=== PATIENT | male | born 1955 | race Caucasian/White ===

== ENCOUNTER 2019-02-22 14:01 | Outpatient (CLI) | payer OTHER | END 2019-02-22 14:02 | disposition home or self-care (01) | LOC: RT 14:01 | PROVIDERS: ATTEND Internal Medicine Gastroenterology | DX: R00.2 Palpitations (principal) | CPT/HCPCS: 93005 ==

== ENCOUNTER 2019-02-25 12:56 | Day surgery (SDC) | payer OTHER ==
[2019-02-25] MEDS ORDERED: LACTATED RINGERS 1,000 ML IV ONE (13:31)
[2019-02-25] MEDS ORDERED: fentaNYL 250 MCG/5 ML VIAL IVP ONE (14:50)
[2019-02-25] MEDS ORDERED: MIDAZOLAM 2 MG/2 ML VIAL IVP ONE (14:50)
[2019-02-25 16:01] VITALS: BP 130/72
== END 2019-02-25 12:57 | disposition home or self-care (01) ==
LOC: SDS 12:56
PROVIDERS: ATTEND Internal Medicine Gastroenterology
PROC: 0DBN8ZZ Excision of Sigmoid Colon, Via Natural or Artificial Opening Endoscopic (ICD-10-PCS; principal; 2019-02-25 14:15)
DX: K62.5 Hemorrhage of anus and rectum (principal); R19.4 Change in bowel habit; K63.5 Polyp of colon; K64.8 Other hemorrhoids; K64.4 Residual hemorrhoidal skin tags; R00.2 Palpitations
CPT/HCPCS: 45380; J7120

== ENCOUNTER 2020-01-18 12:38 | Outpatient (CLI) | payer MEDICARE, OTHER | END 2020-01-18 12:39 | disposition critical access hospital (66) | LOC: EMS 12:38 | PROVIDERS: ATTEND Surgery | DX: R07.81 Pleurodynia (principal); Y93.55 Activity, bike riding; Y92.838 Other recreation area as the place of occurrence of the external cause; V18.0XXA Pedal cycle driver injured in noncollision transport accident in nontraffic accident, initial encounter | CPT/HCPCS: A0425; A0429 ==

== ENCOUNTER 2020-01-18 13:10 | Observation (INO) | payer MEDICARE, OTHER ==
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
[2020-01-18] MEDS ORDERED: MORPHINE 2 MG/ML CARPUJECT IVP STA (14:52)
[2020-01-18 15:08] LABS: BASOPHILS # (AUTO) 0.1 10^3/uL (0.0-0.1); BASOPHILS % (AUTO) 0.5 %; EOSINOPHILS % (AUTO) 0.1 %; HGB - HEMOGLOBIN 15.1 g/dL (14.0-18.0); LYMPHOCYTES # (AUTO) 0.6 10^3/uL (1.5-3.5); LYMPHOCYTES % (AUTO) 4.4 %; MEAN CORPUSCULAR HEMOGLOBIN 30.1 pg (27.0-31.0); MEAN CORPUSCULAR HGB CONC 33.7 g/dL (32.0-36.0); MEAN CORPUSCULAR VOLUME 89.2 fL (80.0-94.0); MEAN PLATELET VOLUME 9.1 fL (7.4-11.4); MONOCYTES # (AUTO) 0.9 10^3/uL (0.0-1.0); MONOCYTES % (AUTO) 6.8 %; NEUTROPHILS # (AUTO) 11.7 10^3/uL (1.5-6.6); NEUTROPHILS % (AUTO) 87.5 %; PLT - PLATELET COUNT 191 10^3/uL (130-450); RED BLOOD COUNT 5.02 10^6/uL (4.70-6.10); RED CELL DISTRIBUTION WIDTH 13.4 % (12.0-15.0); WHITE BLOOD COUNT 13.3 x10^3/uL (4.8-10.8)
[2020-01-18] MEDS ORDERED: IOVERSOL 320 100 ML VIAL IVP ONE ×2 (15:10→15:54)
[2020-01-18 15:15] LABS: MUDS CUTOFF CONCENTRATIONS CUTOFF CONC BELOW:
[2020-01-18 15:18] LABS: BILIRUBIN,URINE NEGATIVE (NEGATIVE); GLUCOSE, URINE (UA) NEGATIVE (NEGATIVE); KETONES,URINE (UA) NEGATIVE (NEGATIVE); LEUKOCYTE ESTERASE, URINE NEGATIVE (NEGATIVE); NITRITE,URINE NEGATIVE (NEGATIVE); OCCULT BLOOD,URINE NEGATIVE (NEGATIVE); PH,URINE 7.5 PH (5.0-7.5); PROTEIN,URINE NEGATIVE (NEGATIVE); UROBILINOGEN,URINE 0.2 (NORMAL) E.U./dL (NORMAL)
[2020-01-18 15:19] LABS: ALBUMIN 4.4 g/dL (3.2-5.5); ALBUMIN/GLOBULIN RATIO 1.8 (1.0-2.2); ALKALINE PHOSPHATASE 132 IU/L (42-121); ALT ALANINE AMINOTRANSFERASE 80 IU/L (10-60); AST ASPARTATE AMINOTRANSFERASE 88 IU/L (10-42); BILIRUBIN,TOTAL 0.7 mg/dL (0.2-1.0); BUN - BLOOD UREA NITROGEN 14 mg/dL (6-20); CALCIUM 9.2 mg/dL (8.5-10.3); CARBON DIOXIDE - CO2 29 mmol/L (21-32); CHLORIDE 105 mmol/L (101-111); CREATININE 0.9 mg/dL (0.6-1.2); GLUCOSE 149 mg/dL (70-100); LIPASE 24 U/L (22-51); PHENYTOIN (DILANTIN) 24.3 ug/mL; SODIUM 141 mmol/L (135-145); TOTAL PROTEIN 6.9 g/dL (6.7-8.2)
[2020-01-18 15:20] LABS: CLARITY,URINE CLEAR (CLEAR)
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
[2020-01-18 15:29] LABS: AMPHETAMINE SCREEN,URINE NEGATIVE (NEGATIVE); BENZODIAZEPINES SCREEN, URINE NEGATIVE (NEGATIVE); COCAINE SCREEN URINE NEGATIVE (NEGATIVE); METHADONE SCREEN, URINE NEGATIVE (NEGATIVE); METHAMPHETAMINES SCREEN, URINE NEGATIVE (NEGATIVE); OPIATE SCREEN, URINE NEGATIVE (NEGATIVE); OXYCODONE SCREEN, URINE NEGATIVE (NEGATIVE); PROPOXYPHENE SCREEN, URINE NEGATIVE (NEGATIVE); TRICYCLIC ANTIDEPRESSANT,URINE NEGATIVE (NEGATIVE)
--- NOTE | 2020-01-18 16:02 | CT Report ---
Reason: Head trauma, abnormal mental status Procedure Date: 01/18/2020 Accession Number: [id number] / [id number] Procedure: CT - HEAD WO CPT Code: Final Report FULL RESULT: EXAM: CT HEAD EXAM DATE: 01/18/2020 03:35 PM. CLINICAL HISTORY: Head trauma, abnormal mental status. COMPARISON: None. TECHNIQUE: Multiaxial CT images were obtained from the foramen magnum to the vertex. Reformats: Sagittal and coronal. IV contrast: None. In accordance with CT protocol optimization, one or more of the following dose reduction techniques were utilized for this exam: automated exposure control, adjustment of mA and/or KV based on patient size, or use of iterative reconstructive technique. FINDINGS: Parenchyma: No intraparenchymal hemorrhage. No evidence of mass, midline shift, or CT findings of acute infarction. Encephalomalacia right temporal lobe. Macias-white differentiation is distinct. Extraaxial Spaces: Normal for age. No subdural or epidural collections identified. Ventricles: Normal in size and position. Sinuses and Orbits: Imaged paranasal sinuses, orbits, and mastoids show no significant abnormality. Bones: Post right temporal craniotomy. Other: None. IMPRESSION: No acute intracranial abnormalities. Encephalomalacia right temporal lobe RADIA
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
[2020-01-18 16:39] LABS: INR 1.2 (0.8-1.2); PT - PROTHROMBIN TIME 13.2 secs (9.9-12.6)
[2020-01-18] MEDS ORDERED: HYDROmorphone 1 MG/ML SYRINGE IVP STA (16:41)
[2020-01-18 16:46] LABS: PARTIAL THROMBOPLASTIN TIME 23.9 secs (24.9-33.3)
[2020-01-18] MEDS ORDERED: SODIUM CHLORIDE FLUSH 0.9% 10 ML SYRINGE IVP PRN (17:59)
[2020-01-18] MEDS ORDERED: ONDANSETRON 4 MG/2 ML VIAL IVP PRN (17:59)
[2020-01-18] MEDS ORDERED: ONDANSETRON ODT 4 MG TABLET TL PRN (17:59)
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
[2020-01-18] MEDS: HYDROmorphone 0.5 MG/0.5 ML SYRINGE IVP PRN (18:41)
[2020-01-18] MEDS: SODIUM CHLORIDE FLUSH 0.9% 10 ML SYRINGE IVP SCH (18:42)
[2020-01-18] MEDS: ACETAMINOPHEN 325 MG TABLET PO PRN (20:09)
[2020-01-18] MEDS: oxyCODONE 5 MG TABLET PO PRN (20:10)
[2020-01-18] MEDS ORDERED: OXYBUTYNIN 5MG TABLET PO SCH (21:00)
[2020-01-18] MEDS ORDERED: NON FORMULARY MED PO SCH (21:00)
[2020-01-18] MEDS: lamoTRIgine 100 MG TABLET PO SCH (23:48)
[2020-01-18] MEDS: PHENYTOIN ER 100 MG CAPSULE PO SCH (23:48)
[2020-01-18] MEDS: PARoxetine 10 MG TABLET PO SCH (23:51)
[2020-01-19] MEDS: oxyCODONE 5 MG TABLET PO PRN ×4 (00:11→20:57)
[2020-01-19] MEDS: SODIUM CHLORIDE FLUSH 0.9% 10 ML SYRINGE IVP SCH ×3 (00:12→21:01)
[2020-01-19] MEDS: HYDROmorphone 0.5 MG/0.5 ML SYRINGE IVP PRN (01:53)
[2020-01-19] MEDS ORDERED: ZONISAMIDE 100MG CAPSULE PO SCH (07:16)
--- NOTE | 2020-01-19 08:20 | PHARMACY PROGRESS NOTE ---
- Best Possible Medication History Admit Date and Time: 01/18/20 1759 Processed by: Pharmacy Medication History completed: Yes Patient Interview: Pt unable to participate Secondary Source(s): Prescription bottles, Pharmacy records, Insurance records As the person ultimately responsible for medication therapy, providers are able to order a medication from an existing home medication list in [facility] via the "Reconcile Routine" prior to Confirmation of that medication by senior technical support analyst. Such practice is discouraged except when the physician, in their clinical judgment, deems that a medical need exists for a medication without regard to previous use.
[2020-01-19] MEDS ORDERED: lamoTRIgine 100 MG TABLET PO SCH (09:00)
[2020-01-19] MEDS: lamoTRIgine 100 MG TABLET PO SCH ×2 (09:47→20:58)
--- NOTE | 2020-01-19 10:59 | PROVIDER PROGRESS NOTE ---
Subjective - General Admit Date: 01/18/20 - Other Other Information/Narrative: Doing well, still quite sore when moving but karen diet, hct stable, no nausea. Has not yet been OOB and no BM in 2 days. Objective - Patient Data Reviewed Vital Signs: Yes Vital Signs: Vital Signs x48h Temp Pulse Pulse Resp BP Pulse Ox 01/19/20 08:19 36.9 C 104 H 14 100 01/19/20 05:00 36.9 C 60 16 130/68 97 Weight: Weight 01/17/20 01/18/20 01/19/20 23:59 23:59 23:59 Weight (kg) 87 kg Intake & Output: Intake and Output Totals x24h 01/17/20 01/18/20 01/19/20 23:59 23:59 23:59 Intake Total 750 1120 Output Total 350 950 Balance 400 170 - Lab Results Lab Results: 01/19/20 06:07 01/18/20 15:00 Other Lab Results: Lab Results x24hrs 01/19/20 01/18/20 01/18/20 Range/Units 06:07 20:25 15:10 WBC (4.8-10.8) x10^3/uL RBC (4.70-6.10) 10^6/uL Hgb (14.0-18.0) g/dL Hct 43.6 45.7 (42.0-52.0) % MCV (80.0-94.0) fL MCH (27.0-31.0) pg MCHC (32.0-36.0) g/dL RDW (12.0-15.0) % Plt Count (130-450) 10^3/uL MPV (7.4-11.4) fL Neut # (Auto) (1.5-6.6) 10^3/uL Lymph # (Auto) (1.5-3.5) 10^3/uL Donley # (Auto) (0.0-1.0) 10^3/uL Eos # (Auto) (0.0-0.7) 10^3/uL Baso # (Auto) (0.0-0.1) 10^3/uL Absolute Nucleated RBC x10^3/uL Nucleated RBC % /100WBC PT (9.9-12.6) secs INR (0.8-1.2) APTT (24.9-33.3) secs Sodium (135-145) mmol/L Potassium (3.5-5.0) mmol/L Chloride (101-111) mmol/L Carbon Dioxide (21-32) mmol/L Anion Gap (6-13) BUN (6-20) mg/dL Creatinine (0.6-1.2) mg/dL Estimated GFR (MDRD) (>89) Glucose (70-100) mg/dL Calcium (8.5-10.3) mg/dL Total Bilirubin (0.2-1.0) mg/dL AST (10-42) IU/L ALT (10-60) IU/L Alkaline Phosphatase (42-121) IU/L Total Protein (6.7-8.2) g/dL Albumin (3.2-5.5) g/dL Globulin (2.1-4.2) g/dL Albumin/Globulin Ratio (1.0-2.2) Lipase (22-51) U/L Urine Color YELLOW Urine Clarity CLEAR (CLEAR) Urine pH 7.5 (5.0-7.5) PH Ur Specific Langdon 1.010 (1.002-1.030) Urine Protein NEGATIVE (NEGATIVE) mg/dL Urine Glucose (UA) NEGATIVE (NEGATIVE) mg/dL Urine Ketones NEGATIVE (NEGATIVE) mg/dL Urine Occult Blood NEGATIVE (NEGATIVE) Urine Nitrite NEGATIVE (NEGATIVE) Urine Bilirubin NEGATIVE (NEGATIVE) Urine Urobilinogen 0.2 (NORMAL) (NORMAL) E.U./dL Ur Leukocyte Esterase NEGATIVE (NEGATIVE) Ur Microscopic Review NOT INDICATED Urine Culture Comments NOT INDICATED Urine Opiates Screen NEGATIVE (NEGATIVE) Ur Oxycodone Screen NEGATIVE (NEGATIVE) Urine Methadone Screen NEGATIVE (NEGATIVE) Ur Propoxyphene Screen NEGATIVE (NEGATIVE) Ur Barbiturates Screen POSITIVE H (NEGATIVE) Phenytoin ug/mL Ur Tricyclics Screen NEGATIVE (NEGATIVE) Ur Phencyclidine Scrn NEGATIVE (NEGATIVE) Ur Amphetamine Screen NEGATIVE (NEGATIVE) U Methamphetamines Scrn NEGATIVE (NEGATIVE) U Benzodiazepines Scrn NEGATIVE (NEGATIVE) Urine Cocaine Screen NEGATIVE (NEGATIVE) U Cannabinoids Screen NEGATIVE (NEGATIVE) Ethyl Alcohol mg/dL 01/18/20 01/18/20 01/18/20 Range/Units 15:00 15:00 15:00 WBC 13.3 H (4.8-10.8) x10^3/uL RBC 5.02 (4.70-6.10) 10^6/uL Hgb 15.1 (14.0-18.0) g/dL Hct 44.8 (42.0-52.0) % MCV 89.2 (80.0-94.0) fL MCH 30.1 (27.0-31.0) pg MCHC 33.7 (32.0-36.0) g/dL RDW 13.4 (12.0-15.0) % Plt Count 191 (130-450) 10^3/uL MPV 9.1 (7.4-11.4) fL Neut # (Auto) 11.7 H (1.5-6.6) 10^3/uL Lymph # (Auto) 0.6 L (1.5-3.5) 10^3/uL Donley # (Auto) 0.9 (0.0-1.0) 10^3/uL Eos # (Auto) 0.0 (0.0-0.7) 10^3/uL Baso # (Auto) 0.1 (0.0-0.1) 10^3/uL Absolute Nucleated RBC 0.00 x10^3/uL Nucleated RBC % 0.0 /100WBC PT 13.2 H (9.9-12.6) secs INR 1.2 (0.8-1.2) APTT 23.9 L (24.9-33.3) secs Sodium 141 (135-145) mmol/L Potassium 3.6 (3.5-5.0) mmol/L Chloride 105 (101-111) mmol/L Carbon Dioxide 29 (21-32) mmol/L Anion Gap 7.0 (6-13) BUN 14 (6-20) mg/dL Creatinine 0.9 (0.6-1.2) mg/dL Estimated GFR (MDRD) 85 L (>89) Glucose 149 H (70-100) mg/dL Calcium 9.2 (8.5-10.3) mg/dL Total Bilirubin 0.7 (0.2-1.0) mg/dL AST 88 H (10-42) IU/L ALT 80 H (10-60) IU/L Alkaline Phosphatase 132 H (42-121) IU/L Total Protein 6.9 (6.7-8.2) g/dL Albumin 4.4 (3.2-5.5) g/dL Globulin 2.5 (2.1-4.2) g/dL Albumin/Globulin Ratio 1.8 (1.0-2.2) Lipase 24 (22-51) U/L Urine Color Urine Clarity (CLEAR) Urine pH (5.0-7.5) PH Ur Specific Langdon (1.002-1.030) Urine Protein (NEGATIVE) mg/dL Urine Glucose (UA) (NEGATIVE) mg/dL Urine Ketones (NEGATIVE) mg/dL Urine Occult Blood (NEGATIVE) Urine Nitrite (NEGATIVE) Urine Bilirubin (NEGATIVE) Urine Urobilinogen (NORMAL) E.U./dL Ur Leukocyte Esterase (NEGATIVE) Ur Microscopic Review Urine Culture Comments Urine Opiates Screen (NEGATIVE) Ur Oxycodone Screen (NEGATIVE) Urine Methadone Screen (NEGATIVE) Ur Propoxyphene Screen (NEGATIVE) Ur Barbiturates Screen (NEGATIVE) Phenytoin 24.3 ug/mL Ur Tricyclics Screen (NEGATIVE) Ur Phencyclidine Scrn (NEGATIVE) Ur Amphetamine Screen (NEGATIVE) U Methamphetamines Scrn (NEGATIVE) U Benzodiazepines Scrn (NEGATIVE) Urine Cocaine Screen (NEGATIVE) U Cannabinoids Screen (NEGATIVE) Ethyl Alcohol < 5.0 mg/dL - Current Medications Current Medications: Current Medications Generic Name Dose Route Start Last Admin Trade Name Freq PRN Reason Stop Dose Admin Acetaminophen 650 mg 01/18/20 17:59 01/18/20 20:09 Tylenol PO 650 mg Q4HR PRN Administration Pain 1 to 4 Hydromorphone HCl 0.5 mg 01/18/20 17:59 01/19/20 01:53 Dilaudid Inj Syringe IVP 0.5 mg Q2H PRN Administration Pain 8 to 10 Lamotrigine 200 mg 01/18/20 21:00 01/18/20 23:48 Lamictal PO 200 mg HS HARIKA Administration Lamotrigine 300 mg 01/19/20 09:00 01/19/20 09:47 Lamictal PO 300 mg DAILY HARIKA Administration Oxybutynin Chloride 5 mg 01/18/20 21:00 01/18/20 20:10 Ditropan PO 01/19/20 21:00 5 mg ACHS HARIKA Administration Oxycodone HCl 5 mg 01/18/20 17:59 01/19/20 06:00 Roxicodone PO 5 mg Q4HR PRN Administration Pain 5 to 7 Paroxetine HCl 60 mg 01/18/20 23:00 01/18/20 23:51 Paxil PO 60 mg HS HARIKA Administration Phenytoin Sodium 500 mg 01/18/20 23:00 01/18/20 23:48 Dilantin PO 500 mg HS HARIKA Administration Sodium Chloride 10 ml 01/18/20 17:59 01/19/20 01:53 Normal Saline Flush 0.9% IVP 10 ml PRN PRN Administration NEEDED PER PROVIDER ORDERS Sodium Chloride 10 ml 01/19/20 01:00 01/19/20 09:48 Normal Saline Flush 0.9% IVP 10 ml 0100,0900,1700 HARIKA Administration - Physical Exam Comments/Other: AAO, NAD, anxious, male of healthy weight EOMI, MMM unlabored NC then RA while in room soft, nt/nd MAEW, motor strength intact; soreness of R thoracoabdominal area SCDs Impression/Plan - Problem List Problem List: Hct stable karen reg diet pain control: sore but controlled, mostly PO meds this AM; will stick with PO regimen and potentially d/c later today ambulate with assistance at first, ensure ability to do ADLs adequately on home sz meds
[2020-01-19] MEDS: polyethylene glycoL 3350 17 GM PACKET PO SCH (16:22)
[2020-01-19] MEDS: DOCUSATE SODIUM 250 MG CAPSULE PO SCH (16:22)
[2020-01-19] MEDS: ACETAMINOPHEN 325 MG TABLET PO PRN (16:24)
[2020-01-19] MEDS: PARoxetine 10 MG TABLET PO SCH (20:57)
[2020-01-19] MEDS: PHENYTOIN ER 100 MG CAPSULE PO SCH (20:58)
[2020-01-20] MEDS: SODIUM CHLORIDE FLUSH 0.9% 10 ML SYRINGE IVP SCH ×2 (00:16→08:58)
[2020-01-20] MEDS: ACETAMINOPHEN 325 MG TABLET PO PRN ×2 (00:16→14:56)
[2020-01-20] MEDS: oxyCODONE 5 MG TABLET PO PRN ×2 (02:52→14:56)
--- NOTE | 2020-01-20 08:49 | PROVIDER PROGRESS NOTE ---
Subjective - General Admit Date: 01/18/20 - Other Other Information/Narrative: Doing well, feels much better, still sore but improved. Per RN, some dizziness early this AM but quickly improved after breakfast Objective - Patient Data Reviewed Vital Signs: Yes Vital Signs: Vital Signs x48h Temp Pulse Resp BP Pulse Ox 01/20/20 07:15 37.3 C 71 18 130/75 94 01/20/20 05:00 37.2 C 64 20 127/62 96 Weight: Weight 01/18/20 01/19/20 01/20/20 23:59 23:59 23:59 Weight (kg) 87 kg Intake & Output: Intake and Output Totals x24h 01/18/20 01/19/20 01/20/20 23:59 23:59 23:59 Intake Total 750 2520 795 Output Total 350 2180 Balance 400 340 795 - Lab Results Lab Results: 01/19/20 06:07 01/18/20 15:00 - Current Medications Current Medications: Current Medications Generic Name Dose Route Start Last Admin Trade Name Freq PRN Reason Stop Dose Admin Acetaminophen 650 mg 01/18/20 17:59 01/20/20 00:16 Tylenol PO 650 mg Q4HR PRN Administration Pain 1 to 4 Docusate Sodium 250 - 500 mg 01/19/20 17:00 01/19/20 16:22 Colace 250mg Capsule PO 250 mg DAILY HARIKA Administration Hydromorphone HCl 0.5 mg 01/18/20 17:59 01/19/20 01:53 Dilaudid Inj Syringe IVP 0.5 mg Q2H PRN Administration Pain 8 to 10 Lamotrigine 200 mg 01/18/20 21:00 01/19/20 20:58 Lamictal PO 200 mg HS HARIKA Administration Lamotrigine 300 mg 01/19/20 09:00 01/19/20 09:47 Lamictal PO 300 mg DAILY HARIKA Administration Zonisamide 100mg 2 each 01/19/20 07:16 01/19/20 20:59 Capsule PO 2 each QPM HARIKA Administration Oxycodone HCl 5 mg 01/18/20 17:59 01/20/20 02:52 Roxicodone PO 5 mg Q4HR PRN Administration Pain 5 to 7 Paroxetine HCl 60 mg 01/18/20 23:00 01/19/20 20:57 Paxil PO 60 mg HS HARIKA Administration Phenytoin Sodium 500 mg 01/18/20 23:00 01/19/20 20:58 Dilantin PO 500 mg HS HARIKA Administration Polyethylene Glycol 17 gm 01/19/20 17:00 01/19/20 16:22 Miralax PO Not Given DAILY HARIKA Sodium Chloride 10 ml 01/18/20 17:59 01/19/20 01:53 Normal Saline Flush 0.9% IVP 10 ml PRN PRN Administration NEEDED PER PROVIDER ORDERS Sodium Chloride 10 ml 01/19/20 01:00 01/20/20 00:16 Normal Saline Flush 0.9% IVP 10 ml 0100,0900,1700 HARIKA Administration - Physical Exam Comments/Other: AAO, NAD, anxious, male of healthy weight EOMI, MMM unlabored RA soft, nt/nd MAEW; soreness of R thoracoabdominal area SCDs Impression/Plan - Problem List Problem List: vitals normal karen reg diet, bowels moving pain control: sore but controlled with PO meds ambulate with assistance at first, ensure ability to do ADLs adequately- have asked PT to see as he will have no assistance at home and his concerned on home sz meds
[2020-01-20] MEDS: lamoTRIgine 100 MG TABLET PO SCH (08:58)
[2020-01-20] MEDS: DOCUSATE SODIUM 250 MG CAPSULE PO SCH (08:59)
[2020-01-20] MEDS: polyethylene glycoL 3350 17 GM PACKET PO SCH (08:59)
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
[2020-01-20 16:12] VITALS: BP 130/75
[2020-01-20] MEDS ORDERED: OXYBUTYNIN 5MG TABLET PO SCH (21:00)
== END 2020-01-20 17:10 | disposition home or self-care (01) ==
LOC: EDUNIT# → ED 13:10 → MS3 17:59
PROVIDERS: ADMIT Surgery; ATTEND Surgery
DX: S36.892A Contusion of other intra-abdominal organs, initial encounter (principal); G40.909 Epilepsy, unspecified, not intractable, without status epilepticus; G47.30 Sleep apnea, unspecified; F32.9 Major depressive disorder, single episode, unspecified; V18.0XXA Pedal cycle driver injured in noncollision transport accident in nontraffic accident, initial encounter; Y93.55 Activity, bike riding; Y99.8 Other external cause status; Z90.89 Acquired absence of other organs
CPT/HCPCS: 36415; 70450; 71101; 71260; 72125; 74177; 80053; 80185; 81003; 83690; 85014; 85025; 85610; 85730; 96374; 96375; 96376; 97116; 97161; 99285; A9270; G0378; J1170; Q9967; 80306; 80320; 81001; 87086

== ENCOUNTER 2022-02-03 16:57 | Outpatient (CLI) | payer MEDICARE, OTHER | END 2022-02-03 16:58 | disposition home or self-care (01) | LOC: LAB.S 16:57 | PROVIDERS: ATTEND Internal Medicine | DX: G40.909 Epilepsy, unspecified, not intractable, without status epilepticus (principal); Z79.899 Other long term (current) drug therapy | CPT/HCPCS: 36415; 80175; 80185; 80186; 80203; 81599 ==

== ENCOUNTER 2022-05-23 10:32 | Outpatient (CLI) | payer MEDICARE, OTHER ==
--- NOTE | 2022-05-23 09:28 | SLEEP CARE CONSULTATION ---
Information from patient questionnaire entered by Heidi Dash MA. I have reviewed and concur with the information entered by Heidi Dash MA. This document represents the service I personally performed and the decisions made by , Loli James ARNP. History of Present Illness Service Date and Time: 05/23/2022 1032 Initial [place] Sleepiness Scale score: 15 Current [place] Sleepiness Scale score: 11 Additional HPI information: LEIDY RAMOS returns via video telehealth visit for follow up and results of the recently performed polysomnography. I explained the pathophysiology behind obstructive sleep apnea. We then spent quite a bit of time discussing different treatment options. For mild obstructive sleep apnea, surgery and oral appliance are alternatives to nasal CPAP therapy but in moderate or severe cases, nasal CPAP is the most effective and reliable treatment. The patient would like to try a BIPAP but has been using a nasal CPAP. Patient was cautioned about risks of drowsy driving until sleepiness symptoms resolve. Sleep Study - Results Type of Sleep Study: Polysomnography (F/U POLY, 05/10/2022 [facility], POS,) Polysomnography/Home Sleep Study results: IMPRESSION: The quality of the study is good. The patient had normal sleep efficiency. The sleep architecture was abnormal for sleep fragmentation and reduced amount of time spent in REM sleep. Respiratory monitoring showed moderate obstructive sleep apnea-hypopnea (AHI = 29.8) associated with frequent arousals, oxyhemoglobin desaturation and mild hypoxia (ayleen oxygen saturation of 86%). The respiratory events occurred mainly during supine sleep (supine AHI = 43.9; non-supine = 5.75). Snore was moderate to loud in intensity. There was severe periodic leg movement of sleep not contributing to the sleep fragmentation. Cardiac rhythm was normal sinus rhythm without significant arrhythmia. No abnormal behavior (parasomnia) observed during the night. Allergies and Home Medications Allergy and home medication list: Allergies No Known Drug Allergies Allergy (Verified 01/18/20 13:17) Physical Exam Vital signs obtained and entered by: CHRISTIE VELIZ, PRE-TELEMED APPT. Height: 5 ft 11 in Impression and Plan 1. Obstructive Sleep Apnea-Hypopnea Syndrome, moderate, with lowest oxygen saturation of 86%. Obviously this is the cause of the patients symptoms of unrefreshed sleep, and excessive daytime sleepiness. Positive pressure therapy could benefit epilepsy. Patient has a CPAP set at 7-10 cmH2O that he started using in the last month. He has used it 13/30 days with 27% compliance. He averages 5 hours 49 minutes with an average residual AHI of 5.2. He has 2.0 centrals, 1.3 obstructions and 1.6 hypopneas. He has a RERA index of 0.2. His median large leaks are 10.9 L/min. He would like to try a BIPAP machine for his therapy. I explained that he would need to qualify for that machine and advised that he to a titration study. He would like to do this. I will have him go to [facility] because we still do not have our titration machines back. A manual titration study will be completed to see if he qualifies for BIPAP. 2. Periodic limb movement, [severe], that did not fragment patients sleep. Periodic limb movement of sleep (PLMS) is characterized by episodes of repetitive limb movements that occur during sleep and usually involve the lower limbs. The etiology is unknown. Caffeine can also aggravate PLMS and should be avoided. Sleep hygiene methods can also improve sleep as well as lifestyle changes such as regular exercise. Patient was advised that no treatment is needed at this time. If symptoms increase, then further evaluation is indicated. * Continue nasal auto CPAP therapy, pressure at 7-10 cmH2O. * Titration study * Avoid alcohol consumption near bedtime. * Avoid supine sleep until using CPAP. * The patient is again cautioned about driving until sleepiness completely resolves. * Return after titration study. Continue with device pressure at (cmH2O): 7-10 Counseling Topics: Weight loss health impact Visit Type: Telehealth Video ([phone]) Video Type: Doximity Location of Provider: Office Patient agrees and consents to this telehealth visit type: Yes Patient agrees to have their insurance billed: Yes Time Spent with Patient (minutes): 22 Provider Statement: I spent 100% of the Telehealth Video Call with the patient with greater than 50% spent counseling the patient and coordination of care.
== END 2022-05-23 10:33 | disposition home or self-care (01) ==
LOC: SC 10:32
PROVIDERS: ATTEND Nurse Practitioner Family
DX: G47.33 Obstructive sleep apnea (adult) (pediatric) (principal); G47.61 Periodic limb movement disorder

== ENCOUNTER 2022-06-06 11:33 | Outpatient (CLI) | payer MEDICARE, OTHER ==
[2022-06-08 14:08] LABS: LAMOTRIGINE (LAMICTAL) 3.3 ug/mL (2.0-20.0); ZONISAMIDE (ZONEGRAN) 7.6 ug/mL (10.0-40.0)
== END 2022-06-06 11:34 | disposition home or self-care (01) ==
LOC: LAB 11:33
PROVIDERS: ATTEND Nurse Practitioner Family
DX: Z79.899 Other long term (current) drug therapy (principal); Z20.822 Contact with and (suspected) exposure to COVID-19
CPT/HCPCS: 36415; 80175; 80185; U0004

== ENCOUNTER 2022-07-11 08:00 | Outpatient (CLI) | payer MEDICARE, OTHER ==
--- NOTE | 2022-07-11 18:51 | XRAY Report ---
PROCEDURE: Ankle 3 View RT INDICATIONS: RIGHT ANKLE PAIN TECHNIQUE: 3 views of the ankle were acquired. COMPARISON: 3 view right foot, 07/11/2022. FINDINGS: Bones: No fractures or dislocations. Ankle mortise is normally aligned. No suspicious bony lesions . Hocg-je-gbvxyyxr degenerative joint disease at the talonavicular joint and navicular cuneiform gabriella nt. Small plantar calcaneal spurring. Soft tissues: No tibiotalar joint effusion. Achilles tendon appears thickened. Tissue calcificatio n in posterior and medial aspect of the ankle. IMPRESSION: 1. Vlsd-yf-nhenelcd degenerative joint disease. 2. Mild calcaneal spurring. 3. Foci of soft tissue calcification in the medial and posterior aspect of the ankle, probably relate d to tendon or ligamentous degeneration.. If clinically indicated, MRI would be helpful. 4. Suspect Achilles tendinitis. Reviewed by: Dionna Hanley MD on 07/11/2022 6:50 PM PDT Approved by: Dionna Hanley MD on 07/11/2022 6:50 PM PDT Station ID: [id number]
--- NOTE | 2022-07-12 12:23 | XRAY Report ---
PROCEDURE: Foot 3 View RT INDICATIONS: RIGHT FOOT PAIN TECHNIQUE: 3 views of the foot were acquired. COMPARISON: Ankle x-ray 07/11/2022 FINDINGS: Bones: No fractures or dislocations. No suspicious bony lesions. Soft tissues: Mild lateral malleoli are edema. Mild midfoot degenerative change. Minimal scattered IP degenerative narrowing. Achilles tendon appears normal. IMPRESSION: Scattered areas of arthritic change as above. No visualized acute fracture or dislocation. However, occult injury cannot be excluded. Recommend juan rt interval imaging follow-up in 7-10 days as clinically indicated for additional evaluation. Reviewed by: Glendy Figueroa MD on 07/12/2022 12:22 PM PDT Approved by: Glendy Figueroa MD on 07/12/2022 12:22 PM PDT Station ID: [id number]
== END 2022-07-11 23:59 | disposition home or self-care (01) ==
LOC: DI.S 08:00
PROVIDERS: ATTEND Physician Assistant
DX: M19.071 Primary osteoarthritis, right ankle and foot (principal); M77.31 Calcaneal spur, right foot

== ENCOUNTER 2022-09-10 12:31 | Outpatient (CLI) | payer MEDICARE, OTHER | END 2022-09-10 12:32 | disposition critical access hospital (66) | LOC: EMS 12:31 | DX: R07.81 Pleurodynia (principal); W01.0XXA Fall on same level from slipping, tripping and stumbling without subsequent striking against object, initial encounter; Y92.008 Other place in unspecified non-institutional (private) residence as the place of occurrence of the external cause | CPT/HCPCS: A0425; A0427 ==

== ENCOUNTER 2022-09-10 13:03 | Emergency (ER) | payer MEDICARE, OTHER ==
--- NOTE | 2022-09-10 13:46 | ED Physician Documentation ---
History of Present Illness - Stated complaint Stated Complaint: CP - Chief complaint Chief Complaint: Trauma Ch/Bk - History obtained from History obtained from: Patient, EMS - History of Present Illness Pain level max: 9 Pain level now: 1 - Additonal information Additional information: Patient is a 66-year-old male who presents to the emergency department after a fall yesterday. He was in the garage when he slipped fell and landed on bricks in the garage on his left chest wall. States he feels like there is a broken rib. Worse with movement, better with rest. Brought in by EMS. Was given fentanyl on route and pain is currently down to a 1. No cough. No congestion. No fevers. No chills. No vomiting. No head injury. Does not take any blood thinners. No neck or back pain. No loss of consciousness. No focal numbness or tingling. No loss of bowel or bladder control. No other injuries besides the chest wall Review of Systems Constitutional: denies: Fever, Chills Respiratory: denies: Dyspnea, Cough, Wheezing GI: denies: Abdominal Pain, Nausea, Vomiting, Diarrhea Skin: denies: Rash Musculoskeletal: denies: Neck pain, Back pain Neurologic: denies: Headache, Head injury, LOC PD PAST MEDICAL HISTORY - Past Medical History Cardiovascular: None Respiratory: Sleep apnea, CPAP use Neuro: Seizure disorder Endocrine/Autoimmune: None GI: Colon polyps, Hemorrhoids : None HEENT: None Psych: Depression Musculoskeletal: None Derm: None - Past Surgical History Past Surgical History: Yes General: Colonoscopy Ortho: Other Neuro: Other - Present Medications Home Medications: Ambulatory Orders Medication Instructions Recorded Confirmed Phenytoin [Dilantin] 500 mg PO QPM 08/16/16 09/10/22 PARoxetine HCL [Paroxetine HCl] 60 mg PO QPM 02/24/19 09/10/22 lamoTRIgine [LaMICtal] 300 mg PO DAILY 02/24/19 09/10/22 Zonisamide [Zonegran] 200 mg PO QPM 01/18/20 09/10/22 Oxybutynin Chloride [Ditropan Xl] 5 mg PO QPM 01/19/20 01/19/20 Docusate Sodium 100 mg PO BID #60 capsule 01/20/20 Ibuprofen 800 mg PO TID #60 tablet 01/20/20 oxyCODONE [Roxicodone] 5 mg PO Q6H PRN #20 tablet 01/20/20 Lidocaine Patch 5% [Lidoderm Patch] 1 patch TOP DAILY PRN #10 patch 09/10/22 Oxycodone HCl/Acetaminophen 1 - 2 each PO Q6H PRN #14 tablet 09/10/22 [Percocet 5-325 mg Tablet] MDD 6 tabs - Allergies Allergies/Adverse Reactions: Allergies Allergy/AdvReac Type Severity Reaction Status Date / Time No Known Drug Allergies Allergy Verified 01/18/20 13:17 - Social History Does the pt smoke?: No Smoking Status: Never smoker Does the pt drink ETOH?: No Does the pt have substance abuse?: No - Immunizations Immunizations are current?: Yes - POLST Patient has POLST: No PD ED PE NORMAL - Vitals Vital signs reviewed: Yes - General General: Alert and oriented X 3, No acute distress, Well developed/nourished - HEENT HEENT: Atraumatic, PERRL, EOMI, Moist mucous membranes - Neck Neck: Supple, no meningeal sign, No bony TTP - Cardiac Cardiac: RRR, Strong equal pulses - Respiratory Respiratory: No respiratory distress, Clear bilaterally, Other (Tender to palpation over the left ribs, approximately 7 through 9. No crepitus. No deformity. Anterior axillary line) - Abdomen Abdomen: Soft, Non tender, Non distended - Back Back: No spinal TTP - Derm Derm: Warm and dry - Extremities Extremities: No edema, No calf tenderness / cord - Neuro Neuro: Alert and oriented X 3, narcotics agent 2-12 intact, No motor deficit, No sensory deficit, Normal speech Eye Opening: Spontaneous Motor: Obeys Commands Verbal: Oriented GCS Score: 15 - Psych Psych: Normal mood, Normal affect Results - Vitals Vitals: Vital Signs - 24 hr 09/10/22 09/10/22 13:16 15:53 Temperature 36.9 C Heart Rate 60 78 Respiratory 20 20 Rate Blood Pressure 149/80 H 144/80 H O2 Saturation 99 99 Oxygen O2 Source Room air - Rads (name of study) CT chest Radiology: Final report received, See rad report PD Medical Decision Making - ED course Complexity details: reviewed results, re-evaluated patient, considered differential, d/w patient ED course: 66-year-old male status post a fall yesterday. Has what appears to be a possibly fractured seventh rib costochondral cartilage. No hemothorax or pneumothorax. Pain well controlled. Will treat with Lidoderm patches and pain medication for home. No other apparent injuries. Patient is well-appearing, nontoxic. Afebrile. No hypoxia. No respiratory distress. Patient counseled regarding signs and symptoms for which I believe and urgent re-evaluation would be necessary. Patient with good understanding of and agreement to plan and is comfortable going home at this time This document was made in part using voice recognition software. While efforts are made to proofread this document, sound alike and grammatical errors may occur. Departure - Departure Disposition: Home, Self Care Clinical Impression: Rib fracture Qualifiers: Encounter type: initial encounter Rib fracture type: single rib Fracture type: closed Laterality: left Qualified Code(s): S22.32XA - Fracture of one rib, left side, initial encounter for closed fracture Condition: Good Instructions: ED Fx Rib Follow-Up: your,doctor in 1 week [Other] Prescriptions: Lidocaine Patch 5% [Lidoderm Patch] 1 patch TOP DAILY PRN #10 patch PRN Reason: pain Oxycodone HCl/Acetaminophen [Percocet 5-325 mg Tablet] 1 - 2 each PO Q6H PRN #14 tablet MDD 6 tabs PRN Reason: pain Comments: Please follow-up with your doctor for further care. Please return if you worsen. Your prescriptions were sent to [facility] in [place]. You have what appears to be a cracked cartilage in your left seventh rib. I am prescribing a short course of narcotic pain medication for you. These are potentially dangerous and addictive medications that should be used carefully. These medications may constipate you. Take an fjnl-xzz-xrtwgdy stool softener (docusate) twice daily with plenty of water while taking these medications. If you go 24 hours without a bowel movement, take dzep-eds-iwjwjyl miralax, per package instructions. Do not drink or drive while taking these medications. If you received narcotic or sedating medications while in the emergency department, do not drive for 24 hours. Store this medication in a safe, secure place and out of reach of children. It is a violation of federal law to give or sell this medication to another person or to use in a manner other than prescribed. The ED will not refill narcotic prescriptions, including prescriptions lost or stolen. To dispose of unwanted medications: 1. [facility] at [address] in [place] has a medication drop box. They accept prescription medications (in pill form) Sunday through Sunday 9:00 a.m. to 5:00 p.m. 2. [facility] accepts prescription medications (in pill form only) for disposal year round. Call for more information. 3. Contact the [facility] for the next [facility] sponsored prescription drug collection event. , [phone], or [phone]; Discharge Date/Time: 09/10/22 15:53
[2022-09-10] MEDS: SODIUM CHLORIDE 0.9% 1,000 ML IV STA (13:51)
[2022-09-10] MEDS: MORPHINE 2 MG/ML CARPUJECT IVP STA (13:51)
--- NOTE | 2022-09-10 14:38 | CT Report ---
PROCEDURE: CHEST WO INDICATIONS: fall, L rib pain TECHNIQUE: Noncontrast 1mm axial images were acquired from the pulmonary apices to the posterior costophrenic an gles. Axial 5 mm soft tissue kernel reconstructions were performed as well as 8 mm axial MIP and cor onal and sagittal 5 mm reformations. For radiation dose reduction, the following was used: automate d exposure control, adjustment of mA and/or kV according to patient size. COMPARISON: 01/18/2020 FINDINGS: Image quality: Good Lungs and pleura: Scattered scarring/atelectasis prior imaging. No pneumothorax. No hemothorax. Pulmo nary micronodules are best seen on maximum intensity images. Followup for these is optional for high- risk patients. For example on the right Mediastinum, heart, and esophagus: Heart size is at the upper limit of normal. Nonspecific distal eso phageal wall thickening. No pathologic adenopathy by size criteria. Chest wall and thyroid: No actionable thyroid nodule identified. Chest wall is unremarkable. Upper abdomen: Liver cysts. Subcentimeter lesions are too small to characterize. These are not well e valuated on this study probably stable from prior. Indeterminate right adrenal nodule, most commonly an adenoma and requires adrenal protocol CT or MR to confirm. Bones: No displaced fracture is identified. No acute thoracic findings as above. There is a suspected costal cartilage fracture of the left seventh rib. (Axial image 56). IMPRESSION: Suspected left seventh rib costal cartilage fracture. No osseous fractures identified. Correlate with point tenderness. No acute thoracic pathology otherwise. Other findings as above. Reviewed by: Abdiel Leiva MD on 09/10/2022 1:37 PM [facility] Approved by: Abdiel Leiva MD on 09/10/2022 1:37 PM [facility] Station ID: [id number]
[2022-09-10] MEDS: LIDOCAINE PATCH 5% TOP STA (15:52)
[2022-09-10] MEDS: oxyCODONE 5 MG TABLET PO STA (15:52)
[2022-09-10 15:53] VITALS: BP 144/80
== END 2022-09-10 15:53 | disposition home or self-care (01) ==
LOC: EDUNIT# → ED 13:03
DX: S22.32XA Fracture of one rib, left side, initial encounter for closed fracture (principal); W01.0XXA Fall on same level from slipping, tripping and stumbling without subsequent striking against object, initial encounter; Y92.008 Other place in unspecified non-institutional (private) residence as the place of occurrence of the external cause
CPT/HCPCS: 71250; 96374; 99282; 99284; A9270

== ENCOUNTER 2023-03-19 14:11 | Outpatient (CLI) | payer MEDICARE, OTHER ==
[2023-03-22 14:08] LABS: LAMOTRIGINE (LAMICTAL) 4.6 ug/mL (2.0-20.0); ZONISAMIDE (ZONEGRAN) 9.4 ug/mL (10.0-40.0)
== END 2023-03-19 14:12 | disposition home or self-care (01) ==
LOC: LAB.S 14:11
PROVIDERS: ATTEND Psychiatry & Neurology Neurology
DX: G40.909 Epilepsy, unspecified, not intractable, without status epilepticus (principal); Z51.81 Encounter for therapeutic drug level monitoring; Z79.899 Other long term (current) drug therapy
CPT/HCPCS: 36415; 80175; 80185